=== PATIENT | male | born 1945 | race Two or more races ===

== ENCOUNTER 2018-01-23 21:59 | Inpatient (IN) | payer MEDICARE, OTHER ==
[~2018-01-23] VITALS: Ht 167.6 cm; Wt 77.3 kg
[~2018-01-23 21:59] MED LIST: HYT1T PO; METF500T PO
[2018-01-23] MEDS ORDERED: normal saline 1000ML IV soln IV ONE (22:05)
[2018-01-23 22:33] LABS: BASOPHILS % (AUTO) 0.4 % (0-1); EOSINOPHILS # (AUTO) 0.3 X10'3 (0-0.9); EOSINOPHILS % (AUTO) 3.4 % (0-6); HEMATOCRIT 28.4 % (42.0-52.0); HEMOGLOBIN 9.1 g/dl (14.0-17.9); LYMPHOCYTES % (AUTO) 13.8 % (21-51); MEAN CORPUSCULAR HEMOGLOBIN 27.4 PG (27.0-31.0); MEAN CORPUSCULAR HGB CONC 32.3 % (33.0-36.5); MEAN CORPUSCULAR VOLUME 84.8 FL (78-98); MEAN PLATELET VOLUME 8.1 FL (7.4-10.4); MONOCYTES # (AUTO) 0.7 X10'3 (0-0.9); MONOCYTES % (AUTO) 8.7 % (2-12); NEUTROPHILS # (AUTO) 5.5 X10'3 (1.8-7.7); NEUTROPHILS % (AUTO) 73.7 % (42-75); PLATELET COUNT 254 X10'3 (140-440); RED BLOOD COUNT 3.35 X10'6 (4.70-6.10); RED CELL DISTRIBUTION WIDTH 13.8 % (11.5-14.5); WHITE BLOOD COUNT 7.4 X10'3 (4.5-11.0)
[2018-01-23 22:51] LABS: ALANINE AMINOTRANSFERASE 22 U/L (12-78); ALBUMIN/GLOBULIN RATIO 0.7 (1.1-1.5); ALKALINE PHOSPHATASE 49 IU/L (46-116); ANION GAP 9 (8-16); ASPARTATE AMINO TRANSFERASE 36 U/L (10-37); BILIRUBIN,TOTAL 0.5 MG/DL (0.1-1.0); BLOOD UREA NITROGEN 39 MG/DL (7-18); BUN/CREATININE RATIO 29.5 (5.4-32.0); CALCIUM 8.5 MG/DL (8.5-10.1); CHLORIDE 102 MMOL/L (99-107); CREATININE 1.32 MG/DL (0.60-1.10); GLUCOSE 169 MG/DL (70-104); POTASSIUM 5.2 MMOL/L (3.5-5.1); SODIUM 136 MMOL/L (135-145); TOTAL CARBON DIOXIDE 25.1 MMOL/L (24-32); TOTAL PROTEIN 7.2 G/DL (6.4-8.2); eGFR 53 ML/MIN
[2018-01-23 22:58] LABS: MAGNESIUM 1.8 MG/DL (1.5-2.4)
[2018-01-23 23:02] LABS: INR 1.1 INR; PARTIAL THROMBOPLASTIN TIME 32 SECONDS (22-32); PROTHROMBIN TIME 10.9 SECONDS (9.0-12.0)
[2018-01-23] MEDS ORDERED: aspirin 325mg tablet PO ONE (23:15)
[2018-01-23 23:33] LABS: D-DIMER 1.25 MG/L FEU (0-0.50)
[2018-01-23] MEDS ORDERED: enoxaparin 80mg/0.8ml syringe SUBCUT ONE (23:45)
[2018-01-23] MEDS ORDERED: enoxaparin 100mg/ml syringe SUBCUT ONE (23:55)
[2018-01-24] MEDS ORDERED: HYDR-4383 PO (00:33)
[2018-01-24] MEDS ORDERED: AMLO-93 PO (00:33)
[2018-01-24] MEDS ORDERED: GABA-532 PO (00:33)
[2018-01-24] MEDS ORDERED: LOSA25TA96 PO (00:33)
[2018-01-24] MEDS ORDERED: TEMA15CA5 PO (00:33)
[2018-01-24] MEDS ORDERED: LACT10SO PO (00:33)
[2018-01-24] MEDS ORDERED: SAXA1TBM2 PO (00:33)
[2018-01-24] MEDS ORDERED: INSU100I25 SQ (00:33)
[2018-01-24] MEDS ORDERED: SERT25TA PO (00:33)
[2018-01-24] MEDS ORDERED: ASPI-1264 PO (00:33)
[2018-01-24] MEDS ORDERED: ATOR-2 PO (00:33)
[2018-01-24] MEDS ORDERED: COD30T PO (00:33)
[2018-01-24] MEDS ORDERED: dextrose ORAL solution 15 GM/59 ML bottle PO PRN ×2 (01:20)
[2018-01-24] MEDS ORDERED: glucagon, human recombinant 1mg kit SUBCUT PRN (01:20)
[2018-01-24] MEDS ORDERED: magnesium hydroxide 30ml (MOM) UD suspension PO PRN (01:20)
[2018-01-24] MEDS ORDERED: furosemide 10 MG/1 ML 10ml inj IV ONE (01:20)
[2018-01-24] MEDS ORDERED: acetaminophen 325mg tablet PO PRN ×2 (01:20)
[2018-01-24] MEDS ORDERED: MESSAGE TO PHARMACY PO ONE (01:20)
[2018-01-24] MEDS ORDERED: dextrose 50%-water 50ml dispensing syringe IV PRN ×2 (01:20)
[2018-01-24] MEDS ORDERED: mag hydrox/Alum hydrox/simeth 30ml oral suspension PO PRN (01:20)
[2018-01-24] MEDS ORDERED: temazepam 15mg capsule PO PRN (01:20)
[2018-01-24] MEDS ORDERED: ondansetron/PF 4mg/2ml inj IV PRN (01:20)
[2018-01-24 02:46] LABS: COLOR,URINE YELLOW (Yellow); GLUCOSE, URINE NEGATIVE (Neg); KETONES,URINE NEGATIVE (Neg); LEUKOCYTE ESTERASE ,URINE NEGATIVE (Neg); NITRITES, URINE NEGATIVE (Neg); OCCULT BLOOD,URINE LARGE (Neg); PH,URINE 5.5 (4.8-8.0); PROTEIN,URINE TRACE mg/dl (Neg); UROBILINOGEN,URINE 0.2 E.U/dL (0.2-1.0)
[2018-01-24 02:53] LABS: CLARITY,URINE SLIGHTLY CLOUDY (Clear); UA COLLECTION TYPE FOLEY CATH
[2018-01-24 02:54] LABS: WBC,URINE NONE SEEN /HPF (0-4)
[2018-01-24 02:55] LABS: BACTERIA,URINE FEW /HPF (Neg); SQUAMOUS EPITHELIAL CELL,UR NONE SEEN /LPF (FEW); TRANSITIONAL EPI CELLS,URINE FEW /HPF
[2018-01-24] MEDS: aspirin 325mg tablet PO SCH (08:36)
[2018-01-24] MEDS: atorvastatin 20mg tablet PO SCH (08:36)
[2018-01-24] MEDS: losartan 25mg tablet PO SCH (08:36)
[2018-01-24] MEDS: gabapentin 300mg capsule PO SCH ×3 (08:36→21:07)
[2018-01-24] MEDS: sertraline 50mg tablet PO SCH (08:36)
[2018-01-24] MEDS ORDERED: magnesium 4gm in 100ml NS 100 ML IV PRN (09:55)
[2018-01-24] MEDS ORDERED: potassium Cl 40MEQ/NS 500ml 500 ML IV PRN ×2 (09:55)
[2018-01-24] MEDS ORDERED: magnesium Cl slow-release 64mg tablet PO PRN (09:55)
[2018-01-24] MEDS ORDERED: potassium Cl 20 mEq SR tablet PO PRN ×2 (09:55)
[2018-01-24] MEDS ORDERED: ACET1TAB25 PO (10:42)
[2018-01-24] MEDS: carVEDilol 12.5mg tablet PO SCH ×2 (14:44→21:07)
[2018-01-24 16:00] VITALS: BP 95/60
[2018-01-24] MEDS ORDERED: acetaminophen w/codeine (30MG) #3 tablet PO PRN (16:00)
[2018-01-24 19:00] VITALS: BP 114/71
[2018-01-24] MEDS ORDERED: lactulose 20gm/30ml cup PO PRN (20:00)
[2018-01-24] MEDS: enoxaparin 80mg/0.8ml syringe SUBCUT SCH (21:08)
[2018-01-24] MEDS: insulin glargine (Lantus) pen - multi-dose SQ SCH (21:12)
[2018-01-24 23:00] VITALS: BP 101/66
[2018-01-25 03:00] VITALS: BP 107/70
[2018-01-25 06:00] VITALS: BP 135/74
[2018-01-25 07:19] LABS: BASOPHILS % (AUTO) 0.3 % (0-1); EOSINOPHILS # (AUTO) 0.3 X10'3 (0-0.9); EOSINOPHILS % (AUTO) 4.3 % (0-6); HEMATOCRIT 26.6 % (42.0-52.0); HEMOGLOBIN 8.7 g/dl (14.0-17.9); LYMPHOCYTES # (AUTO) 1.1 X10'3 (1.1-4.8); LYMPHOCYTES % (AUTO) 15.5 % (21-51); MEAN CORPUSCULAR HEMOGLOBIN 27.7 PG (27.0-31.0); MEAN CORPUSCULAR HGB CONC 32.6 % (33.0-36.5); MEAN CORPUSCULAR VOLUME 84.9 FL (78-98); MEAN PLATELET VOLUME 8.7 FL (7.4-10.4); MONOCYTES # (AUTO) 0.7 X10'3 (0-0.9); MONOCYTES % (AUTO) 10.2 % (2-12); NEUTROPHILS # (AUTO) 4.8 X10'3 (1.8-7.7); NEUTROPHILS % (AUTO) 69.7 % (42-75); PLATELET COUNT 270 X10'3 (140-440); RED BLOOD COUNT 3.13 X10'6 (4.70-6.10); RED CELL DISTRIBUTION WIDTH 13.3 % (11.5-14.5); WHITE BLOOD COUNT 6.9 X10'3 (4.5-11.0)
[2018-01-25 07:42] LABS: ALBUMIN 2.9 G/DL (3.4-5.0); ANION GAP 13 (8-16); BLOOD UREA NITROGEN 47 MG/DL (7-18); BUN/CREATININE RATIO 34.3 (5.4-32.0); CALCIUM 8.9 MG/DL (8.5-10.1); CHLORIDE 101 MMOL/L (99-107); CREATININE 1.37 MG/DL (0.60-1.10); GLUCOSE 172 MG/DL (70-104); POTASSIUM 4.2 MMOL/L (3.5-5.1); SODIUM 136 MMOL/L (135-145); TOTAL CARBON DIOXIDE 22.4 MMOL/L (24-32); eGFR 51 ML/MIN
[2018-01-25] MEDS: gabapentin 300mg capsule PO SCH ×3 (07:45→20:29)
[2018-01-25] MEDS: losartan 25mg tablet PO SCH (07:46)
[2018-01-25] MEDS: atorvastatin 20mg tablet PO SCH (07:46)
[2018-01-25] MEDS: sertraline 50mg tablet PO SCH (07:46)
[2018-01-25] MEDS: aspirin 325mg tablet PO SCH (07:46)
[2018-01-25] MEDS: amLODIPine 5mg tablet PO SCH (07:47)
[2018-01-25] MEDS: carVEDilol 12.5mg tablet PO SCH ×2 (07:47→19:13)
[2018-01-25] MEDS: enoxaparin 80mg/0.8ml syringe SUBCUT SCH (07:48)
[2018-01-25 07:56] LABS: TROPONIN I 2.63 NG/ML (0.0-0.05)
[2018-01-25] MEDS ORDERED: lisinopril 20mg tablet PO SCH (08:00)
[2018-01-25] MEDS: insulin Lispro (HumaLOG) vial - multi-dose SQ SCH ×3 (09:02→19:12)
[2018-01-25 11:00] VITALS: BP 99/63
[2018-01-25] MEDS: HYDROcodone/acetaminophen 5mg/325mg tablet PO PRN (12:54)
[2018-01-25] MEDS ORDERED: furosemide 40mg/4ml inj IV ONE (14:50)
[2018-01-25 15:00] VITALS: BP 114/53
[2018-01-25 15:19] LABS: % IRON SATURATION 22 % (11-46); IRON 41 UG/DL (53-167); TOTAL IRON BINDING CAPACITY 189 UG/DL (259-388)
[2018-01-25 15:23] LABS: FERRITIN 324 NG/ML (26-388)
[2018-01-25] MEDS: clopidogrel 75mg tablet PO SCH (15:36)
[2018-01-25] MEDS: HYDROcodone/acetaminophen 10/325mg tab PO PRN (15:45)
[2018-01-25 18:00] VITALS: BP 97/60
[2018-01-25] MEDS: heparin, porcine 5000 units/ml vial SQ SCH (19:14)
[2018-01-25] MEDS: furosemide 20 MG/2 ML vial IV SCH (19:14)
[2018-01-25] MEDS: insulin glargine (Lantus) pen - multi-dose SQ SCH (20:33)
[2018-01-25 22:00] VITALS: BP 115/60
[2018-01-26 02:00] VITALS: BP 108/63
[2018-01-26] MEDS: HYDROcodone/acetaminophen 10/325mg tab PO PRN ×2 (05:33→10:34)
[2018-01-26 06:00] VITALS: BP 119/68
[2018-01-26 06:37] LABS: BASOPHILS % (AUTO) 0.3 % (0-1); EOSINOPHILS # (AUTO) 0.4 X10'3 (0-0.9); EOSINOPHILS % (AUTO) 5.7 % (0-6); HEMATOCRIT 26.8 % (42.0-52.0); HEMOGLOBIN 8.9 g/dl (14.0-17.9); LYMPHOCYTES % (AUTO) 15.8 % (21-51); MEAN CORPUSCULAR HEMOGLOBIN 28.3 PG (27.0-31.0); MEAN CORPUSCULAR HGB CONC 33.4 % (33.0-36.5); MEAN CORPUSCULAR VOLUME 84.7 FL (78-98); MEAN PLATELET VOLUME 8.6 FL (7.4-10.4); MONOCYTES # (AUTO) 0.5 X10'3 (0-0.9); MONOCYTES % (AUTO) 7.5 % (2-12); NEUTROPHILS # (AUTO) 4.6 X10'3 (1.8-7.7); NEUTROPHILS % (AUTO) 70.7 % (42-75); PLATELET COUNT 289 X10'3 (140-440); RED BLOOD COUNT 3.16 X10'6 (4.70-6.10); RED CELL DISTRIBUTION WIDTH 13.5 % (11.5-14.5); WHITE BLOOD COUNT 6.5 X10'3 (4.5-11.0)
[2018-01-26 06:47] LABS: ALBUMIN 2.9 G/DL (3.4-5.0); ANION GAP 11 (8-16); BLOOD UREA NITROGEN 53 MG/DL (7-18); BUN/CREATININE RATIO 33.5 (5.4-32.0); CALCIUM 8.8 MG/DL (8.5-10.1); CHLORIDE 101 MMOL/L (99-107); CREATININE 1.58 MG/DL (0.60-1.10); GLUCOSE 138 MG/DL (70-104); MAGNESIUM 2.1 MG/DL (1.5-2.4); POTASSIUM 4.4 MMOL/L (3.5-5.1); SODIUM 137 MMOL/L (135-145); TOTAL CARBON DIOXIDE 24.7 MMOL/L (24-32); eGFR 43 ML/MIN
[2018-01-26] MEDS: furosemide 20 MG/2 ML vial IV SCH (08:52)
[2018-01-26] MEDS: clopidogrel 75mg tablet PO SCH (08:52)
[2018-01-26] MEDS: atorvastatin 20mg tablet PO SCH (08:52)
[2018-01-26] MEDS: heparin, porcine 5000 units/ml vial SQ SCH ×2 (08:52→20:05)
[2018-01-26] MEDS: amLODIPine 5mg tablet PO SCH (08:52)
[2018-01-26] MEDS: aspirin 81mg tab.chew PO SCH (08:55)
[2018-01-26] MEDS: carVEDilol 12.5mg tablet PO SCH ×2 (08:55→20:05)
[2018-01-26] MEDS: losartan 25mg tablet PO SCH (08:55)
[2018-01-26] MEDS: gabapentin 300mg capsule PO SCH ×3 (08:55→20:05)
[2018-01-26] MEDS: sertraline 50mg tablet PO SCH (08:56)
[2018-01-26 11:00] VITALS: BP 93/58
[2018-01-26] MEDS: morphine 2 MG/ML inj. syringe IV PRN (12:57)
[2018-01-26] MEDS: insulin Lispro (HumaLOG) vial - multi-dose SQ SCH ×2 (13:00→18:55)
[2018-01-26 15:00] VITALS: BP 92/54
[2018-01-26 19:00] VITALS: BP 106/60
[2018-01-26] MEDS: insulin glargine (Lantus) pen - multi-dose SQ SCH (22:23)
[2018-01-26 23:00] VITALS: BP 101/54
[2018-01-27 03:00] VITALS: BP 122/62
[2018-01-27 05:50] LABS: BASOPHILS % (AUTO) 0.2 % (0-1); EOSINOPHILS # (AUTO) 0.5 X10'3 (0-0.9); EOSINOPHILS % (AUTO) 8.2 % (0-6); HEMOGLOBIN 8.1 g/dl (14.0-17.9); LYMPHOCYTES # (AUTO) 0.9 X10'3 (1.1-4.8); LYMPHOCYTES % (AUTO) 16.2 % (21-51); MEAN CORPUSCULAR HEMOGLOBIN 28.6 PG (27.0-31.0); MEAN CORPUSCULAR HGB CONC 33.9 % (33.0-36.5); MEAN CORPUSCULAR VOLUME 84.3 FL (78-98); MEAN PLATELET VOLUME 8.3 FL (7.4-10.4); MONOCYTES # (AUTO) 0.5 X10'3 (0-0.9); NEUTROPHILS # (AUTO) 3.8 X10'3 (1.8-7.7); NEUTROPHILS % (AUTO) 66.4 % (42-75); PLATELET COUNT 306 X10'3 (140-440); RED BLOOD COUNT 2.84 X10'6 (4.70-6.10); RED CELL DISTRIBUTION WIDTH 13.4 % (11.5-14.5); WHITE BLOOD COUNT 5.8 X10'3 (4.5-11.0)
[2018-01-27 06:04] LABS: ALBUMIN 2.6 G/DL (3.4-5.0); ANION GAP 9 (8-16); BLOOD UREA NITROGEN 53 MG/DL (7-18); BUN/CREATININE RATIO 34.6 (5.4-32.0); CALCIUM 8.3 MG/DL (8.5-10.1); CHLORIDE 101 MMOL/L (99-107); CREATININE 1.53 MG/DL (0.60-1.10); GLUCOSE 129 MG/DL (70-104); MAGNESIUM 2.2 MG/DL (1.5-2.4); POTASSIUM 4.5 MMOL/L (3.5-5.1); SODIUM 135 MMOL/L (135-145); TOTAL CARBON DIOXIDE 25.5 MMOL/L (24-32); eGFR 45 ML/MIN
[2018-01-27 07:00] VITALS: BP 117/60
[2018-01-27] MEDS: heparin, porcine 5000 units/ml vial SQ SCH ×2 (07:34→19:49)
[2018-01-27] MEDS: losartan 25mg tablet PO SCH (07:34)
[2018-01-27] MEDS: clopidogrel 75mg tablet PO SCH (07:36)
[2018-01-27] MEDS: sertraline 50mg tablet PO SCH (07:36)
[2018-01-27] MEDS: gabapentin 300mg capsule PO SCH ×3 (07:36→20:47)
[2018-01-27] MEDS: atorvastatin 20mg tablet PO SCH (07:36)
[2018-01-27] MEDS: carVEDilol 12.5mg tablet PO SCH ×2 (07:36→19:49)
[2018-01-27] MEDS: amLODIPine 5mg tablet PO SCH (07:36)
[2018-01-27 07:37] VITALS: BP 144/85
[2018-01-27] MEDS: aspirin 81mg tab.chew PO SCH (07:37)
[2018-01-27] MEDS: furosemide 20MG tablet PO SCH (07:37)
[2018-01-27] MEDS: insulin Lispro (HumaLOG) vial - multi-dose SQ SCH ×2 (09:18→20:56)
[2018-01-27 15:00] VITALS: BP 116/67
[2018-01-27] MEDS: HYDROcodone/acetaminophen 10/325mg tab PO PRN ×2 (15:25→23:16)
[2018-01-27] MEDS ORDERED: nitroGLYCERIN 0.4mg SUBLingual tab SL PRN (15:50)
[2018-01-27] MEDS: morphine 2 MG/ML inj. syringe IV PRN (16:39)
[2018-01-27 17:50] LABS: CLARITY,URINE TURBID (Clear); COLOR,URINE YELLOW (Yellow); GLUCOSE, URINE NEGATIVE (Neg); KETONES,URINE NEGATIVE (Neg); LEUKOCYTE ESTERASE ,URINE LARGE (Neg); NITRITES, URINE NEGATIVE (Neg); OCCULT BLOOD,URINE LARGE (Neg); PH,URINE 5.5 (4.8-8.0); PROTEIN,URINE 100 mg/dl (Neg); UROBILINOGEN,URINE 0.2 E.U/dL (0.2-1.0)
[2018-01-27 17:54] LABS: UA COLLECTION TYPE NON-SPECIFIED
[2018-01-27] MEDS: levoFLOXACIN-Levaquin 750MG/D5 150 ML IV SCH (17:55)
[2018-01-27 18:00] LABS: MUCUS STRANDS NONE SEEN /LPF (Neg); SQUAMOUS EPITHELIAL CELL,UR NONE SEEN /LPF (FEW)
[2018-01-27 18:01] LABS: BACTERIA,URINE 3+ /HPF (Neg); WBC,URINE TNTC /HPF (0-4)
[2018-01-27 18:02] LABS: RBC,URINE 20-50 /HPF (0-2)
[2018-01-27 19:00] VITALS: BP 117/65
[2018-01-27] MEDS: insulin glargine (Lantus) pen - multi-dose SQ SCH (20:54)
[2018-01-27 23:00] VITALS: BP 101/59
[2018-01-28] VITALS (7 sets, daily range): BP systolic 94–118; BP diastolic 47–65
[2018-01-28 06:08] LABS: ALBUMIN 2.5 G/DL (3.4-5.0); ANION GAP 9 (8-16); BLOOD UREA NITROGEN 46 MG/DL (7-18); BUN/CREATININE RATIO 27.7 (5.4-32.0); CALCIUM 8.4 MG/DL (8.5-10.1); CHLORIDE 100 MMOL/L (99-107); CREATININE 1.66 MG/DL (0.60-1.10); GLUCOSE 143 MG/DL (70-104); MAGNESIUM 2.4 MG/DL (1.5-2.4); POTASSIUM 4.1 MMOL/L (3.5-5.1); SODIUM 135 MMOL/L (135-145); TOTAL CARBON DIOXIDE 26.4 MMOL/L (24-32); eGFR 41 ML/MIN
[2018-01-28 06:10] LABS: BASOPHILS % (AUTO) 0.2 % (0-1); EOSINOPHILS # (AUTO) 0.4 X10'3 (0-0.9); EOSINOPHILS % (AUTO) 4.7 % (0-6); HEMATOCRIT 24.3 % (42.0-52.0); HEMOGLOBIN 8.1 g/dl (14.0-17.9); LYMPHOCYTES # (AUTO) 1.2 X10'3 (1.1-4.8); LYMPHOCYTES % (AUTO) 15.1 % (21-51); MEAN CORPUSCULAR HEMOGLOBIN 28.6 PG (27.0-31.0); MEAN CORPUSCULAR HGB CONC 33.6 % (33.0-36.5); MEAN CORPUSCULAR VOLUME 85.1 FL (78-98); MEAN PLATELET VOLUME 8.2 FL (7.4-10.4); MONOCYTES # (AUTO) 0.8 X10'3 (0-0.9); MONOCYTES % (AUTO) 10.3 % (2-12); NEUTROPHILS # (AUTO) 5.5 X10'3 (1.8-7.7); NEUTROPHILS % (AUTO) 69.7 % (42-75); PLATELET COUNT 302 X10'3 (140-440); RED BLOOD COUNT 2.85 X10'6 (4.70-6.10); RED CELL DISTRIBUTION WIDTH 13.7 % (11.5-14.5); WHITE BLOOD COUNT 7.8 X10'3 (4.5-11.0)
[2018-01-28] MEDS: levoFLOXACIN-Levaquin 750MG/D5 150 ML IV SCH (08:03)
[2018-01-28] MEDS: aspirin 81mg tab.chew PO SCH (08:04)
[2018-01-28] MEDS: heparin, porcine 5000 units/ml vial SQ SCH (08:04)
[2018-01-28] MEDS: atorvastatin 20mg tablet PO SCH (08:04)
[2018-01-28] MEDS: carVEDilol 12.5mg tablet PO SCH ×3 (08:04→19:39)
[2018-01-28] MEDS: losartan 25mg tablet PO SCH (08:04)
[2018-01-28] MEDS: amLODIPine 5mg tablet PO SCH (08:04)
[2018-01-28] MEDS: gabapentin 300mg capsule PO SCH ×3 (08:05→21:21)
[2018-01-28] MEDS: clopidogrel 75mg tablet PO SCH (08:05)
[2018-01-28] MEDS: furosemide 20MG tablet PO SCH (08:05)
[2018-01-28] MEDS: sertraline 50mg tablet PO SCH (08:05)
[2018-01-28 09:30] LABS: PSA, FREE 0.03 ng/mL
[2018-01-28] MEDS: HYDROcodone/acetaminophen 10/325mg tab PO PRN ×2 (09:41→19:38)
[2018-01-28] MEDS: insulin Lispro (HumaLOG) vial - multi-dose SQ SCH ×3 (09:50→18:42)
[2018-01-28] MEDS: morphine 2 MG/ML inj. syringe IV PRN (12:33)
[2018-01-28] MEDS: lactose-reduced food (Ensure High Protein) 237ml bottle PO SCH ×2 (13:00→18:49)
[2018-01-28 15:06] LABS: BASOPHILS % (AUTO) 0.3 % (0-1); EOSINOPHILS # (AUTO) 0.4 X10'3 (0-0.9); EOSINOPHILS % (AUTO) 5.6 % (0-6); HEMATOCRIT 22.7 % (42.0-52.0); HEMOGLOBIN 7.4 g/dl (14.0-17.9); LYMPHOCYTES # (AUTO) 0.8 X10'3 (1.1-4.8); LYMPHOCYTES % (AUTO) 11.6 % (21-51); MEAN CORPUSCULAR HEMOGLOBIN 27.9 PG (27.0-31.0); MEAN CORPUSCULAR HGB CONC 32.8 % (33.0-36.5); MEAN CORPUSCULAR VOLUME 85.3 FL (78-98); MEAN PLATELET VOLUME 7.3 FL (7.4-10.4); MONOCYTES # (AUTO) 0.5 X10'3 (0-0.9); MONOCYTES % (AUTO) 7.6 % (2-12); NEUTROPHILS # (AUTO) 5.2 X10'3 (1.8-7.7); NEUTROPHILS % (AUTO) 74.9 % (42-75); PLATELET COUNT 300 X10'3 (140-440); RED BLOOD COUNT 2.67 X10'6 (4.70-6.10); RED CELL DISTRIBUTION WIDTH 13.4 % (11.5-14.5); WHITE BLOOD COUNT 6.9 X10'3 (4.5-11.0)
[2018-01-28 21:14] LABS: BASOPHILS % (AUTO) 0.2 % (0-1); EOSINOPHILS # (AUTO) 0.5 X10'3 (0-0.9); EOSINOPHILS % (AUTO) 6.8 % (0-6); HEMATOCRIT 23.3 % (42.0-52.0); HEMOGLOBIN 7.6 g/dl (14.0-17.9); LYMPHOCYTES # (AUTO) 0.9 X10'3 (1.1-4.8); LYMPHOCYTES % (AUTO) 11.9 % (21-51); MEAN CORPUSCULAR HEMOGLOBIN 27.8 PG (27.0-31.0); MEAN CORPUSCULAR HGB CONC 32.7 % (33.0-36.5); MEAN CORPUSCULAR VOLUME 85.1 FL (78-98); MEAN PLATELET VOLUME 7.9 FL (7.4-10.4); MONOCYTES # (AUTO) 0.7 X10'3 (0-0.9); NEUTROPHILS # (AUTO) 5.6 X10'3 (1.8-7.7); NEUTROPHILS % (AUTO) 72.1 % (42-75); PLATELET COUNT 309 X10'3 (140-440); RED BLOOD COUNT 2.74 X10'6 (4.70-6.10); RED CELL DISTRIBUTION WIDTH 13.3 % (11.5-14.5); WHITE BLOOD COUNT 7.7 X10'3 (4.5-11.0)
[2018-01-28] MEDS: insulin glargine (Lantus) pen - multi-dose SQ SCH (21:21)
[2018-01-29] VITALS (12 sets, daily range): BP systolic 80–116; BP diastolic 38–92
[2018-01-29] MEDS: HYDROcodone/acetaminophen 10/325mg tab PO PRN ×4 (03:44→23:17)
[2018-01-29 04:52] LABS: BASOPHILS % (AUTO) 0.2 % (0-1); EOSINOPHILS # (AUTO) 0.5 X10'3 (0-0.9); EOSINOPHILS % (AUTO) 6.9 % (0-6); HEMATOCRIT 23.4 % (42.0-52.0); HEMOGLOBIN 7.8 g/dl (14.0-17.9); LYMPHOCYTES # (AUTO) 1.1 X10'3 (1.1-4.8); MEAN CORPUSCULAR HEMOGLOBIN 27.9 PG (27.0-31.0); MEAN CORPUSCULAR VOLUME 84.4 FL (78-98); MEAN PLATELET VOLUME 7.8 FL (7.4-10.4); MONOCYTES # (AUTO) 0.7 X10'3 (0-0.9); MONOCYTES % (AUTO) 9.4 % (2-12); NEUTROPHILS % (AUTO) 68.5 % (42-75); PLATELET COUNT 299 X10'3 (140-440); RED BLOOD COUNT 2.78 X10'6 (4.70-6.10); WHITE BLOOD COUNT 7.3 X10'3 (4.5-11.0)
[2018-01-29 05:26] LABS: ALBUMIN 2.4 G/DL (3.4-5.0); ANION GAP 7 (8-16); BLOOD UREA NITROGEN 47 MG/DL (7-18); BUN/CREATININE RATIO 29.9 (5.4-32.0); CALCIUM 8.3 MG/DL (8.5-10.1); CHLORIDE 101 MMOL/L (99-107); CREATININE 1.57 MG/DL (0.60-1.10); GLUCOSE 130 MG/DL (70-104); MAGNESIUM 2.4 MG/DL (1.5-2.4); POTASSIUM 4.6 MMOL/L (3.5-5.1); SODIUM 135 MMOL/L (135-145); TOTAL CARBON DIOXIDE 26.7 MMOL/L (24-32); eGFR 44 ML/MIN
[2018-01-29] MEDS: carVEDilol 12.5mg tablet PO SCH ×2 (07:15→18:52)
[2018-01-29] MEDS: amLODIPine 5mg tablet PO SCH (07:15)
[2018-01-29] MEDS: atorvastatin 20mg tablet PO SCH (07:15)
[2018-01-29] MEDS: gabapentin 300mg capsule PO SCH ×3 (07:15→18:52)
[2018-01-29] MEDS: losartan 25mg tablet PO SCH (07:15)
[2018-01-29] MEDS: sertraline 50mg tablet PO SCH (07:16)
[2018-01-29] MEDS: lactose-reduced food (Ensure High Protein) 237ml bottle PO SCH ×3 (07:55→18:00)
[2018-01-29] MEDS ORDERED: acetaminophen 325mg tablet PO ONE (08:30)
[2018-01-29] MEDS ORDERED: diphenhydrAMINE 25mg capsule PO ONE (08:30)
[2018-01-29] MEDS: insulin Lispro (HumaLOG) vial - multi-dose SQ SCH ×3 (08:45→19:03)
[2018-01-29] MEDS ORDERED: furosemide 40mg/4ml inj IV ONE (10:30)
[2018-01-29 16:07] LABS: BASOPHILS % (AUTO) 0.3 % (0-1); EOSINOPHILS # (AUTO) 0.4 X10'3 (0-0.9); EOSINOPHILS % (AUTO) 6.4 % (0-6); HEMATOCRIT 26.7 % (42.0-52.0); HEMOGLOBIN 8.7 g/dl (14.0-17.9); LYMPHOCYTES # (AUTO) 1.1 X10'3 (1.1-4.8); MEAN CORPUSCULAR HEMOGLOBIN 28.2 PG (27.0-31.0); MEAN CORPUSCULAR HGB CONC 32.7 % (33.0-36.5); MEAN CORPUSCULAR VOLUME 86.3 FL (78-98); MEAN PLATELET VOLUME 7.9 FL (7.4-10.4); MONOCYTES # (AUTO) 0.7 X10'3 (0-0.9); MONOCYTES % (AUTO) 9.9 % (2-12); NEUTROPHILS # (AUTO) 4.5 X10'3 (1.8-7.7); NEUTROPHILS % (AUTO) 67.4 % (42-75); PLATELET COUNT 316 X10'3 (140-440); RED BLOOD COUNT 3.09 X10'6 (4.70-6.10); RED CELL DISTRIBUTION WIDTH 13.7 % (11.5-14.5); WHITE BLOOD COUNT 6.8 X10'3 (4.5-11.0)
[2018-01-29] MEDS: insulin glargine (Lantus) pen - multi-dose SQ SCH (22:06)
[2018-01-30 03:00] VITALS: BP 112/49
[2018-01-30 07:08] VITALS: BP 124/64
[2018-01-30] MEDS: sertraline 50mg tablet PO SCH (07:23)
[2018-01-30] MEDS: atorvastatin 20mg tablet PO SCH (07:23)
[2018-01-30] MEDS: gabapentin 300mg capsule PO SCH ×3 (07:23→20:46)
[2018-01-30] MEDS: losartan 25mg tablet PO SCH (07:24)
[2018-01-30] MEDS: HYDROcodone/acetaminophen 5mg/325mg tablet PO PRN ×2 (07:25→15:22)
[2018-01-30] MEDS: carVEDilol 12.5mg tablet PO SCH ×2 (07:25→19:32)
[2018-01-30] MEDS: lactose-reduced food (Ensure High Protein) 237ml bottle PO SCH ×3 (08:25→18:33)
[2018-01-30] MEDS: insulin Lispro (HumaLOG) vial - multi-dose SQ SCH ×3 (09:07→18:40)
[2018-01-30 09:41] LABS: BASOPHILS % (AUTO) 0.3 % (0-1); EOSINOPHILS # (AUTO) 0.4 X10'3 (0-0.9); EOSINOPHILS % (AUTO) 4.2 % (0-6); HEMATOCRIT 25.9 % (42.0-52.0); HEMOGLOBIN 8.6 g/dl (14.0-17.9); LYMPHOCYTES # (AUTO) 0.9 X10'3 (1.1-4.8); LYMPHOCYTES % (AUTO) 10.6 % (21-51); MEAN CORPUSCULAR HEMOGLOBIN 28.4 PG (27.0-31.0); MEAN CORPUSCULAR HGB CONC 33.1 % (33.0-36.5); MEAN PLATELET VOLUME 7.9 FL (7.4-10.4); MONOCYTES # (AUTO) 0.6 X10'3 (0-0.9); MONOCYTES % (AUTO) 6.8 % (2-12); NEUTROPHILS # (AUTO) 6.7 X10'3 (1.8-7.7); NEUTROPHILS % (AUTO) 78.1 % (42-75); PLATELET COUNT 309 X10'3 (140-440); RED BLOOD COUNT 3.01 X10'6 (4.70-6.10); RED CELL DISTRIBUTION WIDTH 13.9 % (11.5-14.5); WHITE BLOOD COUNT 8.6 X10'3 (4.5-11.0)
[2018-01-30 09:42] LABS: ALBUMIN 2.5 G/DL (3.4-5.0); ANION GAP 9 (8-16); BLOOD UREA NITROGEN 47 MG/DL (7-18); BUN/CREATININE RATIO 29.4 (5.4-32.0); CALCIUM 7.9 MG/DL (8.5-10.1); CHLORIDE 101 MMOL/L (99-107); GLUCOSE 261 MG/DL (70-104); SODIUM 134 MMOL/L (135-145); TOTAL CARBON DIOXIDE 23.7 MMOL/L (24-32); eGFR 43 ML/MIN
[2018-01-30] MEDS ORDERED: levoFLOXACIN 750MG TABLET PO SCH (11:00)
[2018-01-30 11:58] VITALS: BP 101/46
[2018-01-30 15:00] VITALS: BP 124/79
[2018-01-30 15:42] LABS: OCCULT BLOOD STOOL NEGATIVE (Neg)
[2018-01-30 19:00] VITALS: BP 126/46
[2018-01-30] MEDS: HYDROcodone/acetaminophen 10/325mg tab PO PRN (19:32)
[2018-01-30] MEDS: lactobacillus rhamnosus 10,000 MMU CELLS/CAPSULE PO SCH (19:32)
[2018-01-30] MEDS: insulin glargine (Lantus) pen - multi-dose SQ SCH (21:30)
[2018-01-30 23:00] VITALS: BP 100/49
[2018-01-31 03:00] VITALS: BP 126/61
[2018-01-31] MEDS: morphine 2 MG/ML inj. syringe IV PRN (04:13)
[2018-01-31 06:00] VITALS: BP 127/83
[2018-01-31 06:53] LABS: BASOPHILS % (AUTO) 0.3 % (0-1); EOSINOPHILS # (AUTO) 0.5 X10'3 (0-0.9); EOSINOPHILS % (AUTO) 4.9 % (0-6); HEMATOCRIT 26.9 % (42.0-52.0); HEMOGLOBIN 8.9 g/dl (14.0-17.9); LYMPHOCYTES # (AUTO) 1.2 X10'3 (1.1-4.8); LYMPHOCYTES % (AUTO) 13.2 % (21-51); MEAN CORPUSCULAR HEMOGLOBIN 28.4 PG (27.0-31.0); MEAN CORPUSCULAR HGB CONC 33.1 % (33.0-36.5); MEAN CORPUSCULAR VOLUME 85.7 FL (78-98); MONOCYTES # (AUTO) 0.7 X10'3 (0-0.9); MONOCYTES % (AUTO) 7.4 % (2-12); NEUTROPHILS # (AUTO) 6.9 X10'3 (1.8-7.7); NEUTROPHILS % (AUTO) 74.2 % (42-75); PLATELET COUNT 311 X10'3 (140-440); RED BLOOD COUNT 3.13 X10'6 (4.70-6.10); RED CELL DISTRIBUTION WIDTH 13.7 % (11.5-14.5); WHITE BLOOD COUNT 9.3 X10'3 (4.5-11.0)
[2018-01-31 07:24] LABS: ALBUMIN 2.6 G/DL (3.4-5.0); ANION GAP 9 (8-16); BLOOD UREA NITROGEN 40 MG/DL (7-18); BUN/CREATININE RATIO 29.9 (5.4-32.0); CALCIUM 8.5 MG/DL (8.5-10.1); CHLORIDE 103 MMOL/L (99-107); CREATININE 1.34 MG/DL (0.60-1.10); GLUCOSE 164 MG/DL (70-104); SODIUM 136 MMOL/L (135-145); TOTAL CARBON DIOXIDE 23.8 MMOL/L (24-32); eGFR 52 ML/MIN
[2018-01-31] MEDS: sertraline 50mg tablet PO SCH (07:53)
[2018-01-31] MEDS: gabapentin 300mg capsule PO SCH ×2 (07:53→13:29)
[2018-01-31] MEDS: lactobacillus rhamnosus 10,000 MMU CELLS/CAPSULE PO SCH (07:53)
[2018-01-31] MEDS: losartan 25mg tablet PO SCH (07:53)
[2018-01-31] MEDS: atorvastatin 20mg tablet PO SCH (07:53)
[2018-01-31] MEDS: carVEDilol 12.5mg tablet PO SCH (07:53)
[2018-01-31] MEDS: lactose-reduced food (Ensure High Protein) 237ml bottle PO SCH ×2 (08:00→13:00)
[2018-01-31] MEDS: HYDROcodone/acetaminophen 5mg/325mg tablet PO PRN (09:48)
[2018-01-31] MEDS: insulin Lispro (HumaLOG) vial - multi-dose SQ SCH ×2 (09:49→13:31)
[2018-01-31 11:00] VITALS: BP 123/57
[2018-01-31] MEDS: HYDROcodone/acetaminophen 10/325mg tab PO PRN (13:49)
[2018-01-31 15:00] VITALS: BP 118/47
== END 2018-01-31 16:46 | DRG 280 ==
LOC: ER 22:00 → ED HOLD 01-24 01:17 → PCU 3S 01-24 15:40
PROVIDERS: ADMIT Internal Medicine; ATTEND Internal Medicine
PROC: CB121ZZ Planar Nuclear Medicine Imaging of Lungs and Bronchi using Technetium 99m (Tc-99m) (ICD-10-PCS; 2018-01-24)
PROC: 0T7C8ZZ Dilation of Bladder Neck, Via Natural or Artificial Opening Endoscopic (ICD-10-PCS; principal; 2018-01-26)
PROC: 0T9B80Z Drainage of Bladder with Drainage Device, Via Natural or Artificial Opening Endoscopic (ICD-10-PCS; 2018-01-26)
PROC: 30233N1 Transfusion of Nonautologous Red Blood Cells into Peripheral Vein, Percutaneous Approach (ICD-10-PCS; 2018-01-29)
DX: I21.4 Non-ST elevation (NSTEMI) myocardial infarction (principal); I50.21 Acute systolic (congestive) heart failure; G93.40 Encephalopathy, unspecified; N17.9 Acute kidney failure, unspecified; I13.0 Hypertensive heart and chronic kidney disease with heart failure and stage 1 through stage 4 chronic kidney disease, or unspecified chronic kidney disease; I69.354 Hemiplegia and hemiparesis following cerebral infarction affecting left non-dominant side; N02.9 Recurrent and persistent hematuria with unspecified morphologic changes; N39.0 Urinary tract infection, site not specified; M84.472A Pathological fracture, left ankle, initial encounter for fracture; B96.1 Klebsiella pneumoniae [K. pneumoniae] as the cause of diseases classified elsewhere; I73.9 Peripheral vascular disease, unspecified; N32.0 Bladder-neck obstruction; R91.1 Solitary pulmonary nodule; D64.9 Anemia, unspecified; N18.2 Chronic kidney disease, stage 2 (mild); E11.22 Type 2 diabetes mellitus with diabetic chronic kidney disease; E11.51 Type 2 diabetes mellitus with diabetic peripheral angiopathy without gangrene; E86.0 Dehydration; F01.50 Vascular dementia, unspecified severity, without behavioral disturbance, psychotic disturbance, mood disturbance, and anxiety; J44.9 Chronic obstructive pulmonary disease, unspecified; N40.0 Benign prostatic hyperplasia without lower urinary tract symptoms; Z79.02 Long term (current) use of antithrombotics/antiplatelets; Z79.82 Long term (current) use of aspirin; Z99.3 Dependence on wheelchair; Z74.01 Bed confinement status; Z86.718 Personal history of other venous thrombosis and embolism
CPT/HCPCS: 36415; 70450; 71045; 73610; 73630; 78582; 80048; 80053; 81001; 82272; 82728; 82948; 83036; 83540; 83550; 83605; 83735; 83880; 84145; 84153; 84154; 84484; 84550; 85025; 85379; 85610; 85730; 86885; 86900; 86901; 86920; 87040; 87070; 87077; 87088; 87186; 92616; 93005; 93306; 93922; 93971; 96360; 96372; 97110; 97162; 97530; 99285; A9539; A9540; G0378; J1644; J1650; J1815; J1940; J1956; J2270; P9016; Q0163